=== PATIENT | female | born 1985 | race Caucasian/White ===

== ENCOUNTER 2020-03-23 11:58 | Emergency (ER) | payer MEDICAID ==
--- NOTE | 2020-03-23 12:53 | EDM.PDOC ---
ED HPI GENERAL MEDICAL PROBLEM - General Chief Complaint: LABORER POLE CREW Problem Stated Complaint: BLOOD SPOTTING Time Seen by Provider: 03/23/20 12:34 Source of Information: Reports: Patient History Limitations: Reports: No Limitations - History of Present Illness INITIAL COMMENTS - FREE TEXT/NARRATIVE: HISTORY AND PHYSICAL: History of present illness: Patient is a 35-year-old female who presents to the emergency room with complaints of vaginal bleeding in . She was seen yesterday in [facility] for this complaint and was told she is likely having a miscarriage. She states they did not do an ultrasound during her visit and wanted to come to our facility to have an ultrasound performed. She states she has some pressure in her pelvic area. She denies any recent injury, sexual activity or trauma. Patient denies any fever, chills, headache, change in vision, syncope or near syncope. Denies any chest pain, back pain, shortness of breath or cough. Denies any abdominal pain, nausea, vomiting, diarrhea, constipation or dysuria. Has not noted any blood in urine or stool. Patient has been eating and drinking appropriately. Review of systems: As per history of present illness and below otherwise all systems reviewed and negative. Past medical history: As per history of present illness and as reviewed below otherwise noncontributory. Surgical history: As per history of present illness and as reviewed below otherwise noncontributory. Social history: See social history for further information Family history: As per history of present illness and as reviewed below otherwise noncontributory. Physical exam: General: Well developed and well nourished. Alert and orientated x 3. Nontoxic in appearance and in no acute distress. Vital signs are stable and have been reviewed by me. Nursing notes were reviewed. HEENT: Atraumatic, normocephalic, pupils equal and reactive bilaterally, negative for conjunctival pallor or scleral icterus, mucous membranes moist, TMs normal bilaterally, throat clear, neck supple, nontender, trachea midline. No drooling or trismus noted. No meningeal signs. No hot potato voice noted. Lungs: Clear to auscultation, breath sounds equal bilaterally, chest nontender. Normal work of breathing, no accessory muscles used. Heart: S1S2, regular rate and rhythm without overt murmur Abdomen: Soft, nondistended, nontender. Skin: Intact, warm, dry. No lesions or rashes noted. Hematologic: No petechiae or purpra. Mucosa appropriate color and normal nail bed color and refill. Extremities: Atraumatic, moves all extremities per self without difficulty or deficits, negative for cords or calf pain. Neurovascular unremarkable. Neuro: Awake, alert, oriented. Cranial nerves II through XII unremarkable. Cerebellum unremarkable. Motor and sensory unremarkable throughout. Exam nonfocal. Psychiatric: Mood and affect are appropriate. Normal thought process. Answering questions appropriately. Notes: Patient declined the pelvic exam. She states she just had a pelvic exam yesterday and does not want it again today. She states she is here mostly for the ultrasound but is agreeable to lab work. Shortly after the ultrasound the patient states she wants to leave AGAINST MEDICAL ADVICE. She does not want to wait for her results and is upset that her mother cannot be in the emergency room [place] to COVID. Patient does have a UTI with clue cells. Ultrasound shows a single intrauterine gestational sac located in the right horn of what appears to be a bifurcated uterus. 3.3 cm cyst within the right ovary. 6 weeks and 2 days. Patient signed out AMA. She states she has an appointment next week in [place] and will follow-up there. Diagnostics: CBC, CMP, AB/Rh, Quant HCG, U/S Therapeutics: None Prescription: None Impression: Vaginal bleeding in first trimester UTI Clue Cells Plan: Left AMA Definitive disposition and diagnosis as appropriate pending reevaluation and review of above. - Related Data Allergies Allergy/AdvReac Type Severity Reaction Status Date / Time fluoxetine [From Prozac] Allergy Unknown Other Verified 03/23/20 12:46 Home Meds: Home Meds . [No Known Home Meds] 03/23/20 [History] ED ROS GENERAL - Review of Systems Review Of Systems: Comprehensive ROS is negative, except as noted in HPI. ED EXAM - Physical Exam Exam: See Below (See dictation) Course - Vital Signs Last Recorded V/S: Last Vital Signs Temp 96.0 F L 03/23/20 12:47 Pulse 90 03/23/20 12:47 Resp 20 03/23/20 12:47 BP 116/57 L 03/23/20 12:47 Pulse Ox 98 03/23/20 12:47 - Orders/Labs/Meds Labs: Laboratory Tests 03/23/20 03/23/20 03/23/20 Range/Units 12:52 12:52 12:52 WBC 8.32 (4.0-11.0) K/uL RBC 4.58 (4.30-5.90) M/uL Hgb 13.5 (12.0-16.0) g/dL Hct 41.2 (36.0-46.0) % MCV 90.0 (80.0-98.0) fL MCH 29.5 (27.0-32.0) pg MCHC 32.8 (31.0-37.0) g/dL RDW Std Deviation 41.6 (28.0-62.0) fl RDW Coeff of Brandi 13 (11.0-15.0) % Plt Count 250 (150-400) K/uL MPV 10.50 (7.40-12.00) fL Neut % (Auto) 67.3 (48.0-80.0) % Lymph % (Auto) 25.2 (16.0-40.0) % [place] % (Auto) 6.7 (0.0-15.0) % Eos % (Auto) 0.7 (0.0-7.0) % Baso % (Auto) 0.1 (0.0-1.5) % Neut # (Auto) 5.6 (1.4-5.7) K/uL Lymph # (Auto) 2.1 (0.6-2.4) K/uL [place] # (Auto) 0.6 (0.0-0.8) K/uL Eos # (Auto) 0.1 (0.0-0.7) K/uL Baso # (Auto) 0.0 (0.0-0.1) K/uL Nucleated RBC % 0.0 /100WBC Nucleated RBCs # 0 K/uL Sodium 139 (136-145) mmol/L Potassium 4.1 (3.5-5.1) mmol/L Chloride 104 (98-107) mmol/L Carbon Dioxide 24.1 (21.0-32.0) mmol/L BUN 9 (7.0-18.0) mg/dL Creatinine 0.7 (0.6-1.0) mg/dL Est Cr Clr Drug Dosing 91.91 mL/min Estimated GFR (MDRD) > 60.0 ml/min Glucose 84 (74-106) mg/dL Calcium 8.9 (8.5-10.1) mg/dL Total Bilirubin 0.4 (0.2-1.0) mg/dL AST 19 (15-37) IU/L ALT 40 (14-63) IU/L Alkaline Phosphatase 104 (46-116) U/L Total Protein 7.5 (6.4-8.2) g/dL Albumin 3.8 (3.4-5.0) g/dL Globulin 3.7 (2.6-4.0) g/dL Albumin/Globulin Ratio 1.0 (0.9-1.6) HCG, Quant 72751.0 mIU/mL Urine Color Urine Appearance Urine pH (5.0-8.0) Ur Specific Douglas (1.001-1.035) Urine Protein (NEGATIVE) mg/dL Urine Glucose (UA) (NEGATIVE) mg/dL Urine Ketones (NEGATIVE) mg/dL Urine Occult Blood (NEGATIVE) Urine Nitrite (NEGATIVE) Urine Bilirubin (NEGATIVE) Urine Urobilinogen (<2.0) EU/dL Ur Leukocyte Esterase (NEGATIVE) Urine RBC (0-2/HPF) Urine WBC (0-5/HPF) Ur Epithelial Cells (NONE-FEW) Urine Bacteria (NEGATIVE) Urine Mucus (NONE-MOD) Urine Other Blood Type A POSITIVE 03/23/20 Range/Units 13:18 WBC (4.0-11.0) K/uL RBC (4.30-5.90) M/uL Hgb (12.0-16.0) g/dL Hct (36.0-46.0) % MCV (80.0-98.0) fL MCH (27.0-32.0) pg MCHC (31.0-37.0) g/dL RDW Std Deviation (28.0-62.0) fl RDW Coeff of Brandi (11.0-15.0) % Plt Count (150-400) K/uL MPV (7.40-12.00) fL Neut % (Auto) (48.0-80.0) % Lymph % (Auto) (16.0-40.0) % [place] % (Auto) (0.0-15.0) % Eos % (Auto) (0.0-7.0) % Baso % (Auto) (0.0-1.5) % Neut # (Auto) (1.4-5.7) K/uL Lymph # (Auto) (0.6-2.4) K/uL [place] # (Auto) (0.0-0.8) K/uL Eos # (Auto) (0.0-0.7) K/uL Baso # (Auto) (0.0-0.1) K/uL Nucleated RBC % /100WBC Nucleated RBCs # K/uL Sodium (136-145) mmol/L Potassium (3.5-5.1) mmol/L Chloride (98-107) mmol/L Carbon Dioxide (21.0-32.0) mmol/L BUN (7.0-18.0) mg/dL Creatinine (0.6-1.0) mg/dL Est Cr Clr Drug Dosing mL/min Estimated GFR (MDRD) ml/min Glucose (74-106) mg/dL Calcium (8.5-10.1) mg/dL Total Bilirubin (0.2-1.0) mg/dL AST (15-37) IU/L ALT (14-63) IU/L Alkaline Phosphatase (46-116) U/L Total Protein (6.4-8.2) g/dL Albumin (3.4-5.0) g/dL Globulin (2.6-4.0) g/dL Albumin/Globulin Ratio (0.9-1.6) HCG, Quant mIU/mL Urine Color YELLOW Urine Appearance SLT CLOUDY Urine pH 6.0 (5.0-8.0) Ur Specific Douglas >= 1.030 (1.001-1.035) Urine Protein NEGATIVE (NEGATIVE) mg/dL Urine Glucose (UA) NEGATIVE (NEGATIVE) mg/dL Urine Ketones NEGATIVE (NEGATIVE) mg/dL Urine Occult Blood MODERATE H (NEGATIVE) Urine Nitrite NEGATIVE (NEGATIVE) Urine Bilirubin NEGATIVE (NEGATIVE) Urine Urobilinogen 2.0 H (<2.0) EU/dL Ur Leukocyte Esterase SMALL H (NEGATIVE) Urine RBC 1-2 (0-2/HPF) Urine WBC 10-15 (0-5/HPF) Ur Epithelial Cells FEW (NONE-FEW) Urine Bacteria FEW (NEGATIVE) Urine Mucus MODERATE (NONE-MOD) Urine Other Blood Type Departure - Departure Time of Disposition: 14:49 Disposition: Against Medical Advice 07 Clinical Impression: Vaginal bleeding in UTI (urinary tract infection) Qualifiers: Urinary tract infection type: acute cystitis Hematuria presence: with hematuria Qualified Code(s): N30.01 - Acute cystitis with hematuria - Discharge Information Referrals: PCP,None [Primary Care Provider] - Forms: ED Department Discharge Sepsis Event Note (ED) - Focused Exam Vital Signs: Vital Signs Temp Pulse Resp BP Pulse Ox 03/23/20 12:47 96.0 F L 90 20 116/57 L 98
[2020-03-23 13:39] LABS: BLOOD UREA NITROGEN,BUN 9 mg/dL (7.0-18.0); CARBON DIOXIDE,CO2 24.1 mmol/L (21.0-32.0); CHLORIDE,CL 104 mmol/L (98-107); GLUCOSE RANDOM 84 mg/dL (74-106); POTASSIUM,K 4.1 mmol/L (3.5-5.1); SODIUM,NA 139 mmol/L (136-145)
--- NOTE | 2020-03-23 14:14 | US ---
First trimester obstetrical ultrasound: Multiple real-time images were obtained transvaginally. 2 uterine horns appeared to be present. Single intrauterine is seen within the right horn. Measurements: Current ultrasound: RENATO 11/14/20, gestational age 6 weeks 2 days Single intrauterine gestation is seen. Yolk sac and pole are identified. No subchorionic hemorrhage is seen. Cyst noted within the right ovary measuring 3.3 cm which is most likely due to corpus luteum cyst. Measurements: [place]-rump length: 4.63 cm- 6 weeks 2 days Mean sac diameter: 1.40 cm- in the 6 weeks 2 days Heart activity is seen. Impression: 1. 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 2. Dates as noted above. 3. 3.3 cm cyst within the maternal right ovary most likely due to corpus luteum cyst. Note: No etiology is identified to explain the patient's vaginal bleeding. Diagnostic code #2 This report was dictated in MDT
== END 2020-03-23 14:16 | disposition left against medical advice (07) ==
LOC: MW.ED 11:58
DX: O46.91 Antepartum hemorrhage, unspecified, first trimester (principal); O23.41 Unspecified infection of urinary tract in pregnancy, first trimester; Z3A.01 Less than 8 weeks gestation of pregnancy
CPT/HCPCS: 36415; 76801; 76801-26; 80053; 81001; 84702; 85025; 86900; 86901; 99283; 99284-25

== ENCOUNTER 2020-05-16 19:51 | Emergency (ER) | payer MEDICAID ==
--- NOTE | 2020-05-16 21:21 | EDM.PDOC ---
ED HPI GENERAL MEDICAL PROBLEM - General Chief Complaint: AUTOMOTIVE QUALITY MANAGER Problem Stated Complaint: CRAMPING Time Seen by Provider: 05/16/20 20:59 Source of Information: Reports: Patient History Limitations: Reports: No Limitations - History of Present Illness INITIAL COMMENTS - FREE TEXT/NARRATIVE: 35-year-old female history of PCOS, , GA 14 weeks presents with pelvic c ramping. She is concerned for her baby and wants an ultrasound performed. She has an follow-up appointment with Dr. Mcdermott on Tuesday. She has been undergoing a lot of stress at home. She denies fever, chills, vaginal bleeding, nausea, vomiting, diarrhea, leakage of fluid. ROS: A 10-point review of systems, other than pertinent positives and negatives as stated per HPI, is otherwise negative Past medical history: No additional pertinent history Past Surgical history: No additional pertinent history Social history: No additional pertinent history Family history: No additional pertinent history PHYSICAL EXAM General: AOx4, GCS = 15, No distress HEENT: dry mucous membrane Neck: supple, no meningismus, no Kernig or Brudzinski Cardiac: S1S2 RRR Respiratory: CTAB, no crackles or rales, no wheezing Abdomen: Soft, nontender, no rebound or guarding, nondistended, no pulsatile mass. Back: nontender Musculoskeletal: NVI distally, no deformity Neuro: No focal deficits, CN 2 - 12 WNL. Lower Abdomen Pain Score (Numeric/FACES): 3 - Related Data Allergies Allergy/AdvReac Type Severity Reaction Status Date / Time fluoxetine [From Prozac] Allergy Unknown Other Verified 05/16/20 20:47 Home Meds: Home Meds Metoclopramide HCl [Reglan] 10 mg PO Q4HR PRN 05/16/20 [History] Pnv No.95/Ferrous Fum/Folic AC [ Caplet] 1 dose PO DAILY 05/16/20 [History] cephALEXin [Keflex] 500 mg PO Q8H #30 cap 05/16/20 [Rx] Past Medical History HEENT History: Reports: None Cardiovascular History: Reports: None Respiratory History: Reports: None Gastrointestinal History: Reports: None Genitourinary History: Reports: None AUTOMOTIVE QUALITY MANAGER History: Reports: Polycystic Ovaries, , Other (See Below) Other AUTOMOTIVE QUALITY MANAGER History: states she is 6 weeks , spotting Musculoskeletal History: Reports: None Neurological History: Reports: None Psychiatric History: Reports: Anxiety, Depression Endocrine/Metabolic History: Reports: None Hematologic History: Reports: None Immunologic History: Reports: None Oncologic (Cancer) History: Reports: None Dermatologic History: Reports: None - Infectious Disease History Infectious Disease History: Reports: Chicken Pox Social & Family History - Family History Family Medical History: No Pertinent Family History - Tobacco Use Tobacco Use Status *Q: Former Tobacco User Used Tobacco, but Quit: Yes Month/Year Tobacco Last Used: 02/13 - Caffeine Use Caffeine Use: Reports: Coffee - Recreational Drug Use Recreational Drug Use: No ED ROS GENERAL - Review of Systems Review Of Systems: See Below (see dictation) ED EXAM, GENERAL - Physical Exam Exam: See Below (see dictation) Course - Vital Signs Last Recorded V/S: Last Vital Signs Temp 96.5 F L 05/16/20 20:48 Pulse 88 05/16/20 20:48 Resp 20 05/16/20 20:48 BP 141/54 H 05/16/20 20:48 Pulse Ox 100 05/16/20 20:48 - Orders/Labs/Meds Orders: Active Orders 24 hr Category Date Time Status OB Transvaginal [US] Stat Exams 05/16/20 20:26 Ordered ABO/RH TYPE [BBK] Stat Lab 05/16/20 21:03 Received CULTURE URINE [RM] Stat Lab 05/16/20 21:03 Received Labs: Laboratory Tests 05/16/20 05/16/20 05/16/20 Range/Units 21:03 21:03 21:03 WBC 8.86 (4.0-11.0) K/uL RBC 4.32 (4.30-5.90) M/uL Hgb 12.8 (12.0-16.0) g/dL Hct 39.1 (36.0-46.0) % MCV 90.5 (80.0-98.0) fL MCH 29.6 (27.0-32.0) pg MCHC 32.7 (31.0-37.0) g/dL RDW Std Deviation 43.1 (28.0-62.0) fl RDW Coeff of Brandi 13 (11.0-15.0) % Plt Count 231 (150-400) K/uL MPV 10.20 (7.40-12.00) fL Neut % (Auto) 68.4 (48.0-80.0) % Lymph % (Auto) 23.4 (16.0-40.0) % [place] % (Auto) 7.2 (0.0-15.0) % Eos % (Auto) 0.9 (0.0-7.0) % Baso % (Auto) 0.1 (0.0-1.5) % Neut # (Auto) 6.1 H (1.4-5.7) K/uL Lymph # (Auto) 2.1 (0.6-2.4) K/uL Mobile # (Auto) 0.6 (0.0-0.8) K/uL Eos # (Auto) 0.1 (0.0-0.7) K/uL Baso # (Auto) 0.0 (0.0-0.1) K/uL Nucleated RBC % 0.0 /100WBC Nucleated RBCs # 0 K/uL Sodium 139 (136-145) mmol/L Potassium 3.8 (3.5-5.1) mmol/L Chloride 105 (98-107) mmol/L Carbon Dioxide 25.5 (21.0-32.0) mmol/L BUN 8 (7.0-18.0) mg/dL Creatinine 0.5 L (0.6-1.0) mg/dL Est Cr Clr Drug Dosing 128.67 mL/min Estimated GFR (MDRD) > 60.0 ml/min Glucose 100 (74-106) mg/dL Calcium 8.8 (8.5-10.1) mg/dL Total Bilirubin 0.2 (0.2-1.0) mg/dL AST 16 (15-37) IU/L ALT 36 (14-63) IU/L Alkaline Phosphatase 62 (46-116) U/L Total Protein 7.1 (6.4-8.2) g/dL Albumin 3.5 (3.4-5.0) g/dL Globulin 3.6 (2.6-4.0) g/dL Albumin/Globulin Ratio 1.0 (0.9-1.6) HCG, Qual (NEG) Urine Color YELLOW Urine Appearance SLT CLOUDY Urine pH 6.0 (5.0-8.0) Ur Specific [place]re >= 1.030 (1.001-1.035) Urine Protein NEGATIVE (NEGATIVE) mg/dL Urine Glucose (UA) NEGATIVE (NEGATIVE) mg/dL Urine Ketones TRACE H (NEGATIVE) mg/dL Urine Occult Blood NEGATIVE (NEGATIVE) Urine Nitrite NEGATIVE (NEGATIVE) Urine Bilirubin NEGATIVE (NEGATIVE) Urine Urobilinogen 2.0 H (<2.0) EU/dL Ur Leukocyte Esterase SMALL H (NEGATIVE) Urine RBC 0-2 (0-2/HPF) Urine WBC 4-8 (0-5/HPF) Ur Epithelial Cells FEW (NONE-FEW) Urine Bacteria FEW (NEGATIVE) Urine Mucus LIGHT (NONE-MOD) 05/16/20 Range/Units 21:03 WBC (4.0-11.0) K/uL RBC (4.30-5.90) M/uL Hgb (12.0-16.0) g/dL Hct (36.0-46.0) % MCV (80.0-98.0) fL MCH (27.0-32.0) pg MCHC (31.0-37.0) g/dL RDW Std Deviation (28.0-62.0) fl RDW Coeff of Brandi (11.0-15.0) % Plt Count (150-400) K/uL MPV (7.40-12.00) fL Neut % (Auto) (48.0-80.0) % Lymph % (Auto) (16.0-40.0) % [place] % (Auto) (0.0-15.0) % Eos % (Auto) (0.0-7.0) % Baso % (Auto) (0.0-1.5) % Neut # (Auto) (1.4-5.7) K/uL Lymph # (Auto) (0.6-2.4) K/uL Mobile # (Auto) (0.0-0.8) K/uL Eos # (Auto) (0.0-0.7) K/uL Baso # (Auto) (0.0-0.1) K/uL Nucleated RBC % /100WBC Nucleated RBCs # K/uL Sodium (136-145) mmol/L Potassium (3.5-5.1) mmol/L Chloride (98-107) mmol/L Carbon Dioxide (21.0-32.0) mmol/L BUN (7.0-18.0) mg/dL Creatinine (0.6-1.0) mg/dL Est Cr Clr Drug Dosing mL/min Estimated GFR (MDRD) ml/min Glucose (74-106) mg/dL Calcium (8.5-10.1) mg/dL Total Bilirubin (0.2-1.0) mg/dL AST (15-37) IU/L ALT (14-63) IU/L Alkaline Phosphatase (46-116) U/L Total Protein (6.4-8.2) g/dL Albumin (3.4-5.0) g/dL Globulin (2.6-4.0) g/dL Albumin/Globulin Ratio (0.9-1.6) HCG, Qual POSITIVE H (NEG) Urine Color Urine Appearance Urine pH (5.0-8.0) Ur Specific Sayre (1.001-1.035) Urine Protein (NEGATIVE) mg/dL Urine Glucose (UA) (NEGATIVE) mg/dL Urine Ketones (NEGATIVE) mg/dL Urine Occult Blood (NEGATIVE) Urine Nitrite (NEGATIVE) Urine Bilirubin (NEGATIVE) Urine Urobilinogen (<2.0) EU/dL Ur Leukocyte Esterase (NEGATIVE) Urine RBC (0-2/HPF) Urine WBC (0-5/HPF) Ur Epithelial Cells (NONE-FEW) Urine Bacteria (NEGATIVE) Urine Mucus (NONE-MOD) - Re-Assessments/Exams Free Text/Narrative Re-Assessment/Exam: 05/16/20 21:59 She is currently stable for discharge. I performed a repeat exam and did not appreciate new abnormal findings. Patient exhibits normal vital signs and has a normal gait on road test. I advised the patient to return to the ER for reevaluation if symptoms worsened, including fever, worsening pain, or any other worrisome symptoms. I instructed the patient to follow up with Dr. Mcdermott on Tuesday. MEDICAL DECISION MAKING: I reviewed the patients past medical records, lab and radiographic findings. I discussed the case with the patient. My differential diagnosis included: IUFD, round ligament syndrome, threatened , UTI Departure - Departure Time of Disposition: 21:42 Disposition: Home, Self-Care 01 Condition: Good Clinical Impression: Pelvic cramping in antepartum period UTI (urinary tract infection) Qualifiers: Urinary tract infection type: acute cystitis Hematuria presence: with hematuria Qualified Code(s): N30.01 - Acute cystitis with hematuria - Discharge Information *PRESCRIPTION DRUG MONITORING PROGRAM REVIEWED*: Not Applicable *COPY OF PRESCRIPTION DRUG MONITORING REPORT IN PATIENT NERI: Not Applicable Prescriptions: cephALEXin [Keflex] 500 mg PO Q8H #30 cap Instructions: Pelvic Pain, Female, [id number], and Urinary Tract Infection, Urinary Tract Infection, Adult, [id number] Referrals: Cally Mcdermott MD [Primary Care Provider] - 05/19/20 Forms: ED Department Discharge Additional Instructions: The need for follow-up, as well as the timing and circumstances, are variable depending upon the specifics of your emergency department visit. If you don't have a primary care physician on staff, we will provide you with a referral. We always advise you to contact your personal physician following an emergency department visit to inform them of the circumstance of the visit and for follow-up with them and/or the need for any referrals to a consulting specialist. The emergency department will also refer you to a specialist when appropriate. This referral assures that you have the opportunity for follow-up care with a specialist. All of these measure are taken in an effort to provide you with optimal care, which includes your follow-up. Under all circumstances we always encourage you to contact your private physician who remains a resource for coordinating your care. When calling for follow-up care, please make the office aware that this follow-up is from your recent emergency room visit. If for any reason you are refused follow-up, please contact the [facility] Emergency Department at and asked to speak to the emergency department charge nurse. If you do not have a primary care doctor, please follow up with the clinics below within 3-5 days. [facility] - Primary Care [address] [place] [address] [id number] [address] [address] Sepsis Event Note (ED) - Evaluation Sepsis Screening Result: No Definite Risk - Focused Exam Vital Signs: Vital Signs Temp Pulse Resp BP Pulse Ox 05/16/20 20:48 96.5 F L 88 20 141/54 H 100 - My Orders Last 24 Hours: My Active Orders 05/16/20 20:26 OB Transvaginal [US] Stat - Assessment/Plan Last 24 Hours: My Active Orders 05/16/20 20:26 OB Transvaginal [US] Stat
[2020-05-16 21:38] LABS: BLOOD UREA NITROGEN,BUN 8 mg/dL (7.0-18.0); CARBON DIOXIDE,CO2 25.5 mmol/L (21.0-32.0); CHLORIDE,CL 105 mmol/L (98-107); GLUCOSE RANDOM 100 mg/dL (74-106); POTASSIUM,K 3.8 mmol/L (3.5-5.1); SODIUM,NA 139 mmol/L (136-145)
--- NOTE | 2020-05-16 22:28 | US ---
INDICATION: , cramping TECHNIQUE: Ultrasound OB pelvis transabdominal. Real-time boone-scale imaging of the fetus was performed as well as color Doppler and spectral Doppler analysis of the umbilical artery. COMPARISON: None FINDINGS: Clinical Age: 14 weeks 0 days (RENATO 11/14/2020) Sonographic imaging demonstrates a single living intrauterine gestation. Fetus demonstrates a regular cardiac rate of 159 beats per minute. Fetus has a variable orientation. The placenta lies posterior without evidence of placenta previa. Amniotic fluid volume appears subjectively normal. The following biometric measurements were obtained: Biparietal diameter: 2.3 centimeters corresponding to 13 weeks 6 days. Femur length: 1.2 centimeters corresponding to 13 weeks 3 days.. Maternal left ovary measures 2.3 x 2.0 x 3.0 centimeters and shows normal blood flow. Maternal right ovary not seen although no adnexal masses identified. IMPRESSION.: 1. Single live intrauterine gestation with a clinical age of 14 weeks 0 days. 2. Subjectively normal amniotic fluid. Posterior placenta without perigestational bleed. 3. No maternal adnexal masses seen. Dictated by Fco Curtis MD @ May 16 2020 10:23PM Signed by Dr. Fco Curtis @ May 16 2020 10:27PM
== END 2020-05-16 21:52 | disposition home or self-care (01) ==
LOC: MW.ED 19:51
DX: O23.12 Infections of bladder in pregnancy, second trimester (principal); Z87.891 Personal history of nicotine dependence; Z88.8 Allergy status to other drugs, medicaments and biological substances; Z3A.14 14 weeks gestation of pregnancy
CPT/HCPCS: 36415; 76817; 76817-26; 80053; 81001; 84703; 85025; 86900; 86901; 87086; 99283; 99284-25

== ENCOUNTER 2020-10-29 15:00 | Inpatient (IN) | payer MEDICAID ==
[2020-10-29] MEDS ORDERED: Butorphanol 1 MG/ML SDV IVPUSH PRN (17:06)
[2020-10-29] MEDS ORDERED: Sodium Chloride 0.9% 10 ML SDV IV PRN (17:06)
[2020-10-29] MEDS ORDERED: Tranexamic Acid 1,000 MG in Sodium Chloride 0.9% 100 ML IV PRN (17:06)
[2020-10-29] MEDS ORDERED: Terbutaline 1 MG/ML SDV SUBCUT PRN (17:06)
[2020-10-29] MEDS ORDERED: Misoprostol 200 MCG Tab PO PRN (17:06)
[2020-10-29] MEDS ORDERED: Lidocaine 1% 50 ML MDV INJECT PRN (17:06)
[2020-10-29] MEDS ORDERED: Carboprost Tromethamine 250 MCG/1 ML Amp IM PRN (17:06)
[2020-10-29] MEDS ORDERED: Misoprostol 25 MCG (1/4 of 100 MCG) Tab VAG PRN ×2 (17:06)
[2020-10-29] MEDS ORDERED: Sodium Chloride 0.9% 10 ML Syringe FLUSH PRN (17:06)
[2020-10-29] MEDS ORDERED: Nalbuphine 10 MG/1 ML Vial IVPUSH PRN (17:06)
[2020-10-29] MEDS ORDERED: Methylergonovine 0.2 MG/1 ML Amp IM PRN (17:06)
[2020-10-29] MEDS ORDERED: Water For Irrigation,Sterile 1,000 ML Container IRR PRN (17:06)
[2020-10-29] MEDS ORDERED: Sodium Chloride 0.9% 2.5 ML Syringe FLUSH PRN (17:06)
[2020-10-29] MEDS ORDERED: Oxytocin/0.9 % Sodium Chloride 30 UNIT/500 ML BAG IV SCH (17:15)
[2020-10-29] MEDS: Lactated Ringers 1,000 ML IV SCH ×3 (18:10→21:05)
[2020-10-29 19:34] LABS: BLOOD UREA NITROGEN,BUN 7 mg/dL (7.0-18.0); CARBON DIOXIDE,CO2 22.5 mmol/L (21.0-32.0); CHLORIDE,CL 105 mmol/L (98-107); GLUCOSE RANDOM 76 mg/dL (74-106); SODIUM,NA 138 mmol/L (136-145)
[2020-10-29] MEDS ORDERED: fentaNYL 100 MCG/2 ML SDV ONE (20:38)
[2020-10-29] MEDS ORDERED: Ropivacaine HCl/PF 100 ML ONE (20:39)
--- NOTE | 2020-10-29 21:06 | PCM.PREANE ---
Preanesthetic Assessment - Anesthesia/Transfusion/Family Hx Anesthesia History: Prior Anesthesia Without Reaction Family History of Anesthesia Reaction: No Transfusion History: No Prior Transfusion(s) - Review of Systems Other: Reports: Liver Problems - Physical Assessment NPO Status Date: 10/29/20 NPO Status Time: 18:00 Height: 1.6 m Weight: 107.048 kg ASA Class: 2 - Lab Values: Laboratory Last Values WBC 10.56 K/uL (4.0-11.0) 10/29/20 18:10 RBC 4.05 M/uL (4.30-5.90) L 10/29/20 18:10 Hgb 12.2 g/dL (12.0-16.0) 10/29/20 18:10 Hct 36.8 % (36.0-46.0) 10/29/20 18:10 MCV 90.9 fL (80.0-98.0) 10/29/20 18:10 MCH 30.1 pg (27.0-32.0) 10/29/20 18:10 MCHC 33.2 g/dL (31.0-37.0) 10/29/20 18:10 RDW Std Deviation 44.8 fl (28.0-62.0) 10/29/20 18:10 RDW Coeff of Brandi 14 % (11.0-15.0) 10/29/20 18:10 Plt Count 195 K/uL (150-400) 10/29/20 18:10 MPV 12.10 fL (7.40-12.00) H 10/29/20 18:10 Nucleated RBC % 0.0 /100WBC 10/29/20 18:10 Nucleated RBCs # 0 K/uL 10/29/20 18:10 Sodium 138 mmol/L (136-145) 10/29/20 18:10 Potassium 4.0 mmol/L (3.5-5.1) 10/29/20 18:10 Chloride 105 mmol/L (98-107) 10/29/20 18:10 Carbon Dioxide 22.5 mmol/L (21.0-32.0) 10/29/20 18:10 BUN 7 mg/dL (7.0-18.0) 10/29/20 18:10 Creatinine 0.7 mg/dL (0.6-1.0) 10/29/20 18:10 Est Cr Clr Drug Dosing 91.91 mL/min 10/29/20 18:10 Estimated GFR (MDRD) > 60.0 ml/min 10/29/20 18:10 Glucose 76 mg/dL (74-106) 10/29/20 18:10 Uric Acid 3.0 mg/dL (2.6-7.2) 10/29/20 18:10 Calcium 8.3 mg/dL (8.5-10.1) L 10/29/20 18:10 Total Bilirubin 0.3 mg/dL (0.2-1.0) 10/29/20 18:10 AST 18 IU/L (15-37) 10/29/20 18:10 ALT 20 IU/L (14-63) 10/29/20 18:10 Alkaline Phosphatase 142 U/L (46-116) H 10/29/20 18:10 Total Protein 6.3 g/dL (6.4-8.2) L 10/29/20 18:10 Albumin 2.7 g/dL (3.4-5.0) L 10/29/20 18:10 Globulin 3.6 g/dL (2.6-4.0) 10/29/20 18:10 Albumin/Globulin Ratio 0.8 (0.9-1.6) L 10/29/20 18:10 Membrane Rupture POSITIVE 10/29/20 15:55 SARS-CoV-2 RNA (GEO) NEGATIVE (NEGATIVE) 10/29/20 17:40 Blood Type A POSITIVE 10/29/20 18:10 Antibody Screen NEGATIVE 10/29/20 18:10 - Allergies Allergies/Adverse Reactions: Allergies Allergy/AdvReac Type Severity Reaction Status Date / Time fluoxetine [From Prozac] Allergy Unknown Other Verified 10/27/20 12:53 - Acknowledgements Anesthesia Type Planned: Epidural Pt an Appropriate Candidate for the Planned Anesthesia: Yes Alternatives and Risks of Anesthesia Discussed w Pt/Guardian: Yes Pt/Guardian Understands and Agrees with Anesthesia Plan: Yes PreAnesthesia Questionnaire HEENT History: Reports: None Cardiovascular History: Reports: None Respiratory History: Reports: None Gastrointestinal History: Reports: None Genitourinary History: Reports: None SERVICE DESK AGENT History: Reports: Polycystic Ovaries, , Other (See Below) Other OB/BYN History: states she is 6 weeks , spotting Musculoskeletal History: Reports: None Neurological History: Reports: None Psychiatric History: Reports: Anxiety, Depression Endocrine/Metabolic History: Reports: None Hematologic History: Reports: None Immunologic History: Reports: None Oncologic (Cancer) History: Reports: None Dermatologic History: Reports: Eczema - Infectious Disease History Infectious Disease History: Reports: Hepatitis C - Past Surgical History Head Surgeries/Procedures: Reports: None - SUBSTANCE USE Tobacco Use Status *Q: Current Every Day Tobacco User Tobacco Use Within Last Twelve Months: Cigarettes Second Hand Smoke Exposure: No Recreational Drug Use History: No - HOME MEDS Home Medications: Home Meds Metoclopramide HCl [Reglan] 10 mg PO Q4HR PRN 05/16/20 [History] Pnv No.95/Ferrous Fum/Folic AC [ Caplet] 1 dose PO DAILY 05/16/20 [History] cephALEXin [Keflex] 500 mg PO Q8H #30 cap 05/16/20 [Rx] - CURRENT (IN HOUSE) MEDS Current Meds: Current Medications Butorphanol Tartrate (Butorphanol 1 Mg/Ml Sdv) 1 mg IVPUSH Q1H PRN PRN Reason: Pain Carboprost Tromethamine (Carboprost Tromethamine 250 Mcg/1 Ml Amp) 250 mcg IM ASDIRECTED PRN PRN Reason: Post Hemorrhage Oxytocin/Sodium Chloride (Oxytocin 30 Unit/500 Ml-Ns) 30 unit in 500 mls @ 2 mls/hr IV TITRATE DAYANA; Protocol Last Titration: 10/29/20 19:29 Dose: 4 munits/min, 4 mls/hr Documented by: Lactated Ringer's (Ringers, Lactated) 1,000 mls @ 150 mls/hr IV ASDIRECTED DAYANA Last Admin: 10/29/20 21:05 Dose: 150 mls/hr Documented by: Oxytocin/Sodium Chloride (Oxytocin 30 Unit/500 Ml-Ns) 30 unit in 500 mls @ 999 mls/hr IV TITRATE DAYANA Tranexamic Acid 1,000 mg/ (Sodium Chloride) 110 mls @ 660 mls/hr IV ONETIME PRN PRN Reason: Bleeding Lidocaine HCl (Lidocaine 1% 50 Ml Mdv) 50 ml INJECT ONETIME PRN PRN Reason: Laceration repair Methylergonovine Maleate (Methylergonovine 0.2 Mg/1 Ml Amp) 0.2 mg IM ASDIRECTED PRN PRN Reason: Post Hemorrhage Misoprostol (Misoprostol 200 Mcg Tab) 200 mcg PO ONETIME PRN PRN Reason: Post Hemorrhage Nalbuphine HCl (Nalbuphine 10 Mg/1 Ml Vial) 10 mg IVPUSH Q1H PRN PRN Reason: Pain (severe 7-10) Sodium Chloride (Sodium Chloride 0.9% 10 Ml Syringe) 10 ml FLUSH ASDIRECTED PRN PRN Reason: Keep Vein Open Sodium Chloride (Sodium Chloride 0.9% 2.5 Ml Syringe) 2.5 ml FLUSH ASDIRECTED PRN PRN Reason: Keep Vein Open Sodium Chloride (Sodium Chloride 0.9% 10 Ml Sdv) 10 ml IV ASDIRECTED PRN PRN Reason: IV Use Sterile Water (Water For Irrigation,Sterile 1,000 Ml Container) 1,000 ml IRR ASDIRECTED PRN PRN Reason: delivery Terbutaline Sulfate (Terbutaline 1 Mg/Ml Sdv) 0.25 mg SUBCUT ASDIRECTED PRN PRN Reason: Tacysystole Discontinued Medications Fentanyl (Fentanyl 100 Mcg/2 Ml Sdv) Confirm Administered Dose 100 mcg .ROUTE .STK-MED ONE Stop: 10/29/20 20:39 Ropivacaine (Naropin 0.2%) Confirm Administered Dose 100 mls @ as directed .ROUTE .STK-MED ONE Stop: 10/29/20 20:40
--- NOTE | 2020-10-29 21:09 | PCM.PRNOTE ---
- Free Text/Narrative Note: Anes NOte Patient rquests epidural for L&D. Sitting position. Level L3-L4 midline approach. Sterile technique. Chloraprep scrub to lumbar area. Sterile fenestrated drape applied. Epidural space easily achieved second attempt using CHELSY technique. CHELSY at 4 cm. Cath threaded 5 cm with ease. Cath secured at skin using sterile clear adhesive dressing. Test 2054 3 cc 1.5% lido with epi negative. Load 2057 10 cc 0.2% ropivicaine with 1 mcg cc fentanyl in slow divided doses. 2103 Pump started with 90 cc same solution. Rate is 8 cc hr iwth 6 cc q 20 min prn bolus. Herber well. Time with patient Clement Francosi DENTAL OFFICE RECEPTIONIST
[2020-10-30] MEDS ORDERED: Ondansetron 4 MG/2 ML SDV ONE (00:54)
[2020-10-30] MEDS ORDERED: Ondansetron 4 MG/2 ML SDV IVPUSH PRN (01:08)
[2020-10-30] MEDS ORDERED: fentaNYL 100 MCG/2 ML SDV ONE (04:40)
[2020-10-30] MEDS ORDERED: Lidocaine 2% with EPINEPHrine 1:200,000 20 ML SDV ONE (04:40)
[2020-10-30] MEDS ORDERED: Ropivacaine HCl/PF 100 ML ONE (04:40)
--- NOTE | 2020-10-30 04:55 | PCM.PRNOTE ---
- Free Text/Narrative Note: Anes Note Epidural Bag change. A new bag of 90 cc 0.2% ropivicaine with 1 mcg cc fentanl added was placed. Rate is 8 cc hr with 6 cc q 20 min prn pain. Also, a sitting doses of 6 cc 2% lido with epi was also administered. Time with patient [id number] Marlene Francois CRNA
[2020-10-30] MEDS: Oxytocin/0.9 % Sodium Chloride 30 UNIT/500 ML BAG IV SCH ×2 (05:40→06:17)
[2020-10-30] MEDS ORDERED: Butorphanol 1 MG/ML SDV ONE (06:07)
[2020-10-30] MEDS ORDERED: Oxytocin/0.9 % Sodium Chloride 30 UNIT/500 ML BAG ONE (06:12)
[2020-10-30] MEDS ORDERED: Misoprostol 200 MCG Tab ONE (06:12)
[2020-10-30] MEDS ORDERED: ceFAZolin 1 GM Vial ONE (07:08)
[2020-10-30] MEDS ORDERED: Sodium Chloride 0.9% 20 ML ONE (07:08)
[2020-10-30] MEDS ORDERED: Propofol 200 MG/20 ML SDV ONE ×2 (07:12→08:06)
[2020-10-30] MEDS ORDERED: Midazolam 1 MG/ML 2 ML SDV ONE ×2 (07:13→07:14)
[2020-10-30] MEDS ORDERED: Ketamine 500 mg/10 ML MDV ONE (07:45)
[2020-10-30] MEDS ORDERED: fentaNYL 250 MCG/5 ML SDV ONE (08:04)
[2020-10-30] MEDS ORDERED: Methylergonovine 0.2 MG/1 ML Amp ONE (08:13)
--- NOTE | 2020-10-30 09:08 | US ---
INDICATION: Placenta retrieval in operating room TECHNIQUE: Limited transabdominal images of the pelvis were obtained during intraoperative removal of the placenta. COMPARISON: None. 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 There is no visualization of placental material on limited images with minimal fluid seen in the endometrial canal. IMPRESSION: Ultrasound guidance provided for intraoperative placental removal. No obvious placental tissue is seen within the limited images of the exam. Dictated by Joseluis Fishman MD @ 10/30/2020 9:05:[address] Joseluis Fishman @ Oct 30 2020 9:05AM
--- NOTE | 2020-10-30 11:27 | PCM.DEL ---
L & D Note - General Info Date of Service: 10/30/20 - Delivery Note Cervical Ripening Method: Oxytocin Delivery Outcome: Livebirth Delivery Method: Spontaneous Vaginal Delivery-Single Presentation: Left Occiput Anterior (YONY) Nuchal Cord: None Anesthesia Type: Epidural Amniotic Fluid Description: Clear Episiotomy Type: None Laceration: None Placenta: Retained Cord: 3 Vessels Estimated Blood Loss: 100 Resuscitation Needed: No Score 1 min: 8 Score 5 min: 9 Delivery Comments (Free Text/Narrative):: Live female delivered at 540 am , 8/9 weight 2470g Retained placenta , Patient taken to OR for removal of placenta after failed attempt at manual removal - General Info Date of Service: 10/30/20 - Patient Data Vitals - Most Recent: Last Vital Signs Temp 36.6 C 10/30/20 09:20 Pulse 88 10/30/20 10:35 Resp 17 10/30/20 10:35 BP 150/72 H 10/30/20 10:35 Pulse Ox 98 10/30/20 10:35 Weight - Most Recent: 107.048 kg I&O - Last 24 Hours: Intake & Output 10/29/20 10/30/20 10/30/20 22:59 06:59 14:59 Intake Total 1300 Output Total 50 Balance 1250 Lab Results Last 24 Hours: Laboratory Results - last 24 hr 10/29/20 10/29/20 10/29/20 Range/Units 15:55 17:40 18:10 WBC 10.56 (4.0-11.0) K/uL RBC 4.05 L (4.30-5.90) M/uL Hgb 12.2 (12.0-16.0) g/dL Hct 36.8 (36.0-46.0) % MCV 90.9 (80.0-98.0) fL MCH 30.1 (27.0-32.0) pg MCHC 33.2 (31.0-37.0) g/dL RDW Std Deviation 44.8 (28.0-62.0) fl RDW Coeff of Brandi 14 (11.0-15.0) % Plt Count 195 (150-400) K/uL MPV 12.10 H (7.40-12.00) fL Nucleated RBC % 0.0 /100WBC Nucleated RBCs # 0 K/uL Sodium (136-145) mmol/L Potassium (3.5-5.1) mmol/L Chloride (98-107) mmol/L Carbon Dioxide (21.0-32.0) mmol/L BUN (7.0-18.0) mg/dL Creatinine (0.6-1.0) mg/dL Est Cr Clr Drug Dosing mL/min Estimated GFR (MDRD) ml/min Glucose (74-106) mg/dL Uric Acid (2.6-7.2) mg/dL Calcium (8.5-10.1) mg/dL Total Bilirubin (0.2-1.0) mg/dL AST (15-37) IU/L ALT (14-63) IU/L Alkaline Phosphatase (46-116) U/L Total Protein (6.4-8.2) g/dL Albumin (3.4-5.0) g/dL Globulin (2.6-4.0) g/dL Albumin/Globulin Ratio (0.9-1.6) Ur Random Creatinine mg/dL U Random Total Protein (<11.9) mg/dL Protein/Creatinin Ratio Membrane Rupture POSITIVE SARS-CoV-2 RNA (GEO) NEGATIVE (NEGATIVE) Blood Type Antibody Screen 10/29/20 10/29/20 10/29/20 Range/Units 18:10 18:10 18:10 WBC (4.0-11.0) K/uL RBC (4.30-5.90) M/uL Hgb (12.0-16.0) g/dL Hct (36.0-46.0) % MCV (80.0-98.0) fL MCH (27.0-32.0) pg MCHC (31.0-37.0) g/dL RDW Std Deviation (28.0-62.0) fl RDW Coeff of Brandi (11.0-15.0) % Plt Count (150-400) K/uL MPV (7.40-12.00) fL Nucleated RBC % /100WBC Nucleated RBCs # K/uL Sodium 138 (136-145) mmol/L Potassium 4.0 (3.5-5.1) mmol/L Chloride 105 (98-107) mmol/L Carbon Dioxide 22.5 (21.0-32.0) mmol/L BUN 7 (7.0-18.0) mg/dL Creatinine 0.7 (0.6-1.0) mg/dL Est Cr Clr Drug Dosing 91.91 mL/min Estimated GFR (MDRD) > 60.0 ml/min Glucose 76 (74-106) mg/dL Uric Acid 3.0 (2.6-7.2) mg/dL Calcium 8.3 L (8.5-10.1) mg/dL Total Bilirubin 0.3 (0.2-1.0) mg/dL AST 18 (15-37) IU/L ALT 20 (14-63) IU/L Alkaline Phosphatase 142 H (46-116) U/L Total Protein 6.3 L (6.4-8.2) g/dL Albumin 2.7 L (3.4-5.0) g/dL Globulin 3.6 (2.6-4.0) g/dL Albumin/Globulin Ratio 0.8 L (0.9-1.6) Ur Random Creatinine mg/dL U Random Total Protein (<11.9) mg/dL Protein/Creatinin Ratio Membrane Rupture SARS-CoV-2 RNA (GEO) (NEGATIVE) Blood Type A POSITIVE Antibody Screen NEGATIVE 10/29/20 Range/Units 19:40 WBC (4.0-11.0) K/uL RBC (4.30-5.90) M/uL Hgb (12.0-16.0) g/dL Hct (36.0-46.0) % MCV (80.0-98.0) fL MCH (27.0-32.0) pg MCHC (31.0-37.0) g/dL RDW Std Deviation (28.0-62.0) fl RDW Coeff of Brandi (11.0-15.0) % Plt Count (150-400) K/uL MPV (7.40-12.00) fL Nucleated RBC % /100WBC Nucleated RBCs # K/uL Sodium (136-145) mmol/L Potassium (3.5-5.1) mmol/L Chloride (98-107) mmol/L Carbon Dioxide (21.0-32.0) mmol/L BUN (7.0-18.0) mg/dL Creatinine (0.6-1.0) mg/dL Est Cr Clr Drug Dosing mL/min Estimated GFR (MDRD) ml/min Glucose (74-106) mg/dL Uric Acid (2.6-7.2) mg/dL Calcium (8.5-10.1) mg/dL Total Bilirubin (0.2-1.0) mg/dL AST (15-37) IU/L ALT (14-63) IU/L Alkaline Phosphatase (46-116) U/L Total Protein (6.4-8.2) g/dL Albumin (3.4-5.0) g/dL Globulin (2.6-4.0) g/dL Albumin/Globulin Ratio (0.9-1.6) Ur Random Creatinine 149.9 mg/dL U Random Total Protein 24.8 H (<11.9) mg/dL Protein/Creatinin Ratio 0.2 Membrane Rupture SARS-CoV-2 RNA (GEO) (NEGATIVE) Blood Type Antibody Screen Med Orders - Current: Current Medications Butorphanol Tartrate (Butorphanol 1 Mg/Ml Sdv) 1 mg IVPUSH Q1H PRN PRN Reason: Pain Last Admin: 10/30/20 06:29 Dose: 1 mg Documented by: Carboprost Tromethamine (Carboprost Tromethamine 250 Mcg/1 Ml Amp) 250 mcg IM ASDIRECTED PRN PRN Reason: Post Hemorrhage Oxytocin/Sodium Chloride (Oxytocin 30 Unit/500 Ml-Ns) 30 unit in 500 mls @ 2 mls/hr IV TITRATE DAYANA; Protocol Last Titration: 10/30/20 06:15 Dose: 0 munits/min, 0 mls/hr Documented by: Lactated Ringer's (Ringers, Lactated) 1,000 mls @ 150 mls/hr IV ASDIRECTED DAYANA Last Admin: 10/29/20 21:05 Dose: 150 mls/hr Documented by: Oxytocin/Sodium Chloride (Oxytocin 30 Unit/500 Ml-Ns) 30 unit in 500 mls @ 999 mls/hr IV TITRATE DAYANA Last Admin: 10/30/20 06:17 Dose: 500 mls/hr Documented by: Tranexamic Acid 1,000 mg/ (Sodium Chloride) 110 mls @ 660 mls/hr IV ONETIME PRN PRN Reason: Bleeding Lidocaine HCl (Lidocaine 1% 50 Ml Mdv) 50 ml INJECT ONETIME PRN PRN Reason: Laceration repair Methylergonovine Maleate (Methylergonovine 0.2 Mg/1 Ml Amp) 0.2 mg IM ASDIRECTED PRN PRN Reason: Post Hemorrhage Misoprostol (Misoprostol 200 Mcg Tab) 200 mcg PO ONETIME PRN PRN Reason: Post Hemorrhage Last Admin: 10/30/20 06:18 Dose: 800 mcg Documented by: Nalbuphine HCl (Nalbuphine 10 Mg/1 Ml Vial) 10 mg IVPUSH Q1H PRN PRN Reason: Pain (severe 7-10) Ondansetron HCl (Ondansetron 4 Mg/2 Ml Sdv) 4 mg IVPUSH Q6H PRN PRN Reason: Nausea/Vomiting Last Admin: 10/30/20 01:10 Dose: 4 mg Documented by: Sodium Chloride (Sodium Chloride 0.9% 10 Ml Syringe) 10 ml FLUSH ASDIRECTED PRN PRN Reason: Keep Vein Open Sodium Chloride (Sodium Chloride 0.9% 2.5 Ml Syringe) 2.5 ml FLUSH ASDIRECTED PRN PRN Reason: Keep Vein Open Sodium Chloride (Sodium Chloride 0.9% 10 Ml Sdv) 10 ml IV ASDIRECTED PRN PRN Reason: IV Use Sterile Water (Water For Irrigation,Sterile 1,000 Ml Container) 1,000 ml IRR ASDIRECTED PRN PRN Reason: delivery Terbutaline Sulfate (Terbutaline 1 Mg/Ml Sdv) 0.25 mg SUBCUT ASDIRECTED PRN PRN Reason: Tacysystole Discontinued Medications Butorphanol Tartrate (Butorphanol 1 Mg/Ml Sdv) Confirm Administered Dose 1 mg .ROUTE .STK-MED ONE Stop: 10/30/20 06:08 Cefazolin Sodium (Cefazolin 1 Gm Vial) Confirm Administered Dose 2 gm .ROUTE .STK-MED ONE Stop: 10/30/20 07:09 Fentanyl (Fentanyl 100 Mcg/2 Ml Sdv) Confirm Administered Dose 100 mcg .ROUTE .STK-MED ONE Stop: 10/29/20 20:39 Fentanyl (Fentanyl 250 Mcg/5 Ml Sdv) Confirm Administered Dose 0 mcg .ROUTE .STK-MED ONE Stop: 10/30/20 08:05 Fentanyl (Fentanyl 100 Mcg/2 Ml Sdv) Confirm Administered Dose 100 mcg .ROUTE .STK-MED ONE Stop: 10/30/20 04:41 Ropivacaine (Naropin 0.2%) Confirm Administered Dose 100 mls @ as directed .ROUTE .[facility] ONE Stop: 10/29/20 20:40 Sodium Chloride (Normal Saline) Confirm Administered Dose 20 mls @ as directed .ROUTE .[facility] ONE Stop: 10/30/20 07:09 Ropivacaine (Naropin 0.2%) Confirm Administered Dose 100 mls @ as directed .ROUTE .[facility] ONE Stop: 10/30/20 04:41 Oxytocin/Sodium Chloride (Oxytocin 30 Unit/500 Ml-Ns) Confirm Administered Dose 30 unit in 500 mls @ as directed .ROUTE .[facility] ONE Stop: 10/30/20 06:13 Ketamine HCl (Ketamine 500 Mg/10 Ml Mdv) Confirm Administered Dose 500 mg .ROUTE .[facility] ONE Stop: 10/30/20 07:46 Lidocaine/Epinephrine (Lidocaine 2% With Epinephrine 1:200,000 20 Ml Sdv) Confirm Administered Dose 20 ml .ROUTE .[facility] ONE Stop: 10/30/20 04:41 Methylergonovine Maleate (Methylergonovine 0.2 Mg/1 Ml Amp) Confirm Administered Dose 0.2 mg .ROUTE .[facility] ONE Stop: 10/30/20 08:14 Midazolam HCl (Midazolam 1 Mg/Ml 2 Ml Sdv) Confirm Administered Dose 2 mg .ROUTE .[facility] ONE Stop: 10/30/20 07:14 Midazolam HCl (Midazolam 1 Mg/Ml 2 Ml Sdv) Confirm Administered Dose 2 mg .ROUTE .[facility] ONE Stop: 10/30/20 07:15 Misoprostol (Misoprostol 200 Mcg Tab) Confirm Administered Dose 800 mcg .ROUTE .[facility] ONE Stop: 10/30/20 06:13 Ondansetron HCl (Ondansetron 4 Mg/2 Ml Sdv) Confirm Administered Dose 4 mg .ROUTE .[facility] ONE Stop: 10/30/20 00:55 Propofol (Propofol 200 Mg/20 Ml Sdv) Confirm Administered Dose 0 mg .ROUTE .[facility]- MED ONE Stop: 10/30/20 07:13 Propofol (Propofol 200 Mg/20 Ml Sdv) Confirm Administered Dose 200 mg .ROUTE .[facility] ONE Stop: 10/30/20 08:07 - Problem List & Annotations (1) Retained placenta SNOMED Code(s): 254797466 Code(s): O73.0 - RETAINED PLACENTA WITHOUT HEMORRHAGE Status: Acute Current Visit: Yes Qualifiers: Retained placenta detail: complete placenta Qualified Code(s): O73.0 - Retained placenta without hemorrhage - Problem List Review Problem List Initiated/Reviewed/Updated: Yes - My Orders Last 24 Hours: My Active Orders 10/29/20 15:32 Up ad Pearl [RC] ASDIRECTED Vital Signs [RC] PER UNIT ROUTINE Resuscitation Status Routine 10/29/20 17:06 Patient Status [ADT] Routine May Shower [RC] ASDIRECTED Oxygen Therapy [RC] ASDIRECTED Up ad Pearl [RC] ASDIRECTED Vital Signs [RC] PER UNIT ROUTINE Vital Signs [RC] PER UNIT ROUTINE Butorphanol [Stadol] 1 mg IVPUSH Q1H PRN Carboprost Tromethamine [Hemabate DS] 250 mcg IM ASDIRECTED PRN Lidocaine 1% [Xylocaine 1%] 50 ml INJECT ONETIME PRN Methylergonovine [Methergine] 0.2 mg IM ASDIRECTED PRN Nalbuphine [Nubain] 10 mg IVPUSH Q1H PRN Sodium Chloride 0.9% [Normal Saline] 10 ml IV ASDIRECTED PRN Sodium Chloride 0.9% [Saline Flush] 10 ml FLUSH ASDIRECTED PRN Sodium Chloride 0.9% [Saline Flush] 2.5 ml FLUSH ASDIRECTED PRN Terbutaline [Brethine] 0.25 mg SUBCUT ASDIRECTED PRN Tranexamic Acid [Cyklokapron] 1,000 mg Sodium Chloride 0.9% [Normal Saline] 100 ml IV ONETIME Water For Irrigation,Sterile [Sterile Water for Irrigation] 1,000 ml IRR ASDIRECTED PRN miSOPROStoL [Cytotec] 200 mcg PO ONETIME PRN Scalp Electrode [WOMSER] Per Unit Routine Peripheral IV Insertion Adult [OM.PC] Routine 10/29/20 17:15 Lactated Ringers [Ringers, Lactated] 1,000 ml IV ASDIRECTED Oxytocin/0.9 % Sodium Chloride [Oxytocin 30 Unit/500 ML-NS] 30 unit in 500 ml IV TITRATE Oxytocin/0.9 % Sodium Chloride [Oxytocin 30 Unit/500 ML-NS] 30 unit in 500 ml IV TITRATE Medication Administration Instruction [OM.PC] Q3H 10/29/20 17:22 PROTEIN/CREATININE RATIO,URINE [URCHEM] Routine 10/29/20 18:10 RPR (SYPHILIS SERO) W/ RFLX [REF] Routine 10/29/20 20:24 Consult to Case Management/Finish Painter [CONS] Routine 10/30/20 01:08 Ondansetron [Zofran] 4 mg IVPUSH Q6H PRN - Assessment Assessment:: 35yo P1001 s/p @ 37w3d , IUGR , Active Hep C , Septate uterus Vaginal delivered complicated by retained placenta - Plan Plan:: OR to for Removal of placenta with curettage under ultrasound guidance
--- NOTE | 2020-10-30 11:44 | PCM.OPNOTE ---
- General Post-Op/Procedure Note Date of Surgery/Procedure: 10/30/20 Operative Procedure(s): Uterine exploration. Uterine curettage with removal of retained placenta under ultrasound guidance Findings: Ultrasound showed placenta in the right uterine fundus Under ultrasound guidance - Large Bandu curette used to seperate placenta from the endometrium , placenta moved down to the lower segment , then ring forcep used to grasp a large portion of placenta. Placenta gently pulled out of the uterus. Placenta inspected and noted to be complete. Pre Op Diagnosis: Retained placenta. Failed manual removal of placenta Post-Op Diagnosis: same Anesthesia Technique: Epidural, MAC Primary Surgeon: Paco Mendoza Anesthesia Provider: Clement Francois Pathology: Placenta Fluid Replacement, Intraop: 1,000 EBL in mLs: 500 Complications: None Condition: Good Free Text/Narrative:: Intake & Output 10/29/20 10/30/20 10/30/20 22:59 06:59 14:59 Intake Total 1300 Output Total 50 Balance 1250 Under ultrasound guidance the Banjo forcep was used to cleave the plane between the placenta and the endometrium . when placenta was cleaved the ring forcep was used to gentle pull placenta out. Placenta inspected and noted to be intact.
[2020-10-30] MEDS ORDERED: Bisacodyl 10 MG Supp RECTAL PRN (11:52)
[2020-10-30] MEDS ORDERED: Ibuprofen 800 MG Tab PO PRN (11:52)
[2020-10-30] MEDS ORDERED: Docusate Sodium 100 MG Cap PO PRN (11:52)
[2020-10-30] MEDS ORDERED: Witch Hazel Medicated Pads 40/Jar TOP PRN (11:52)
[2020-10-30] MEDS ORDERED: Acetaminophen 500 MG Tab PO PRN ×2 (11:52)
[2020-10-30] MEDS ORDERED: Lanolin 100% Cream 7 GM Tube TOP PRN (11:52)
[2020-10-30] MEDS ORDERED: Benzocaine/Menthol 20%-0.5% Spray 78 GM Cannister TOP PRN (11:52)
[2020-10-30] MEDS ORDERED: Ibuprofen 400 MG Tab PO PRN (11:52)
[2020-10-30] MEDS: oxyCODONE 5 MG Tab PO PRN (18:02)
--- NOTE | 2020-10-31 07:55 | PCM48HPAN ---
Post Anesthesia Note - EVALUATION WITHIN 48HRS OF ANESTHETIC Vital Signs in Normal Range: Yes Patient Participated in Evaluation: Yes Respiratory Function Stable: Yes Airway Patent: Yes Cardiovascular Function Stable: Yes Hydration Status Stable: Yes Pain Control Satisfactory: Yes Nausea and Vomiting Control Satisfactory: Yes Mental Status Recovered: Yes Vital Signs: Last Vital Signs Temp 36.1 C 10/30/20 19:47 Pulse 84 10/30/20 19:47 Resp 18 10/30/20 19:47 BP 137/73 10/30/20 19:47 Pulse Ox 96 10/30/20 19:47
[2020-10-31] MEDS: oxyCODONE 5 MG Tab PO PRN (08:42)
--- NOTE | 2020-10-31 08:53 | PCM.PNPP ---
- General Info Date of Service: 10/31/20 Functional Status: Reports: Pain Controlled, Tolerating Diet, Ambulating, Urinating - Review of Systems General: Reports: No Symptoms HEENT: Reports: No Symptoms Pulmonary: Reports: No Symptoms Cardiovascular: Reports: No Symptoms Gastrointestinal: Reports: No Symptoms Genitourinary: Reports: No Symptoms Musculoskeletal: Reports: No Symptoms Skin: Reports: No Symptoms Neurological: Reports: No Symptoms Psychiatric: Reports: No Symptoms - Patient Data Vital Signs - Most Recent: Last Vital Signs Temp 36.6 C 10/31/20 08:12 Pulse 75 10/31/20 08:12 Resp 18 10/31/20 08:12 BP 117/58 L 10/31/20 08:12 Pulse Ox 98 10/31/20 08:12 Weight - Most Recent: 236 lb Lab Results - Last 24 Hours: Laboratory Results - last 24 hr 10/31/20 Range/Units 04:46 WBC 9.43 (4.0-11.0) K/uL RBC 3.46 L (4.30-5.90) M/uL Hgb 10.3 L (12.0-16.0) g/dL Hct 31.8 L (36.0-46.0) % MCV 91.9 (80.0-98.0) fL MCH 29.8 (27.0-32.0) pg MCHC 32.4 (31.0-37.0) g/dL RDW Std Deviation 46.3 (28.0-62.0) fl RDW Coeff of Brandi 14 (11.0-15.0) % Plt Count 152 (150-400) K/uL MPV 11.90 (7.40-12.00) fL Neut % (Auto) 74.1 (48.0-80.0) % Lymph % (Auto) 17.8 (16.0-40.0) % [place] % (Auto) 7.5 (0.0-15.0) % Eos % (Auto) 0.5 (0.0-7.0) % Baso % (Auto) 0.1 (0.0-1.5) % Neut # (Auto) 7.0 H (1.4-5.7) K/uL Lymph # (Auto) 1.7 (0.6-2.4) K/uL [place] # (Auto) 0.7 (0.0-0.8) K/uL Eos # (Auto) 0.1 (0.0-0.7) K/uL Baso # (Auto) 0.0 (0.0-0.1) K/uL Nucleated RBC % 0.0 /100WBC Nucleated RBCs # 0 K/uL Med Orders - Current: Current Medications Acetaminophen (Acetaminophen 500 Mg Tab) 500 mg PO Q4H PRN PRN Reason: Pain Acetaminophen (Acetaminophen 500 Mg Tab) 1,000 mg PO Q4H PRN PRN Reason: Pain Last Admin: 10/30/20 16:19 Dose: 1,000 mg Documented by: Benzocaine/Menthol (Benzocaine/Menthol 20%-0.5% [place] 78 Gm Cannister) 78 gm TOP ASDIRECTED PRN PRN Reason: Perineal Comfort Measure Bisacodyl (Bisacodyl 10 Mg Supp) 10 mg RECTAL ONETIME PRN PRN Reason: Constipation Butorphanol Tartrate (Butorphanol 1 Mg/Ml Sdv) 1 mg IVPUSH Q1H PRN PRN Reason: Pain Last Admin: 10/30/20 06:29 Dose: 1 mg Documented by: Carboprost Tromethamine (Carboprost Tromethamine 250 Mcg/1 Ml Amp) 250 mcg IM ASDIRECTED PRN PRN Reason: Post Hemorrhage Docusate Sodium (Docusate Sodium 100 Mg Cap) 100 mg PO BID PRN PRN Reason: Constipation Emollient Ointment (Lanolin 100% Cream 7 Gm Tube) 0 gm TOP ASDIRECTED PRN PRN Reason: Sore Nipples Oxytocin/Sodium Chloride (Oxytocin 30 Unit/500 Ml-Ns) 30 unit in 500 mls @ 2 mls/hr IV TITRATE DAYANA; Protocol Last Titration: 10/30/20 06:15 Dose: 0 munits/min, 0 mls/hr Documented by: Lactated Ringer's (Ringers, Lactated) 1,000 mls @ 150 mls/hr IV ASDIRECTED DAYANA Last Admin: 10/29/20 21:05 Dose: 150 mls/hr Documented by: Oxytocin/Sodium Chloride (Oxytocin 30 Unit/500 Ml-Ns) 30 unit in 500 mls @ 999 mls/hr IV TITRATE DAYANA Last Admin: 10/30/20 06:17 Dose: 500 mls/hr Documented by: Tranexamic Acid 1,000 mg/ (Sodium Chloride) 110 mls @ 660 mls/hr IV ONETIME PRN PRN Reason: Bleeding Ibuprofen (Ibuprofen 400 Mg Tab) 400 mg PO Q4H PRN PRN Reason: Pain Ibuprofen (Ibuprofen 800 Mg Tab) 800 mg PO Q6H PRN PRN Reason: Pain Lidocaine HCl (Lidocaine 1% 50 Ml Mdv) 50 ml INJECT ONETIME PRN PRN Reason: Laceration repair Methylergonovine Maleate (Methylergonovine 0.2 Mg/1 Ml Amp) 0.2 mg IM ASDIRECTED PRN PRN Reason: Post Hemorrhage Misoprostol (Misoprostol 200 Mcg Tab) 200 mcg PO ONETIME PRN PRN Reason: Post Hemorrhage Last Admin: 10/30/20 06:18 Dose: 800 mcg Documented by: Nalbuphine HCl (Nalbuphine 10 Mg/1 Ml Vial) 10 mg IVPUSH Q1H PRN PRN Reason: Pain (severe 7-10) Ondansetron HCl (Ondansetron 4 Mg/2 Ml Sdv) 4 mg IVPUSH Q6H PRN PRN Reason: Nausea/Vomiting Last Admin: 10/30/20 01:10 Dose: 4 mg Documented by: Oxycodone HCl (Oxycodone 5 Mg Tab) 5 mg PO Q2H PRN PRN Reason: Pain Last Admin: 10/31/20 08:42 Dose: 5 mg Documented by: Sterile Water (Water For Irrigation,Sterile 1,000 Ml Container) 1,000 ml IRR A SDIRECTED PRN PRN Reason: delivery Witch Mable (Witch Mable Medicated Pads 40/Jar) 1 pad TOP ASDIRECTED PRN PRN Reason: comfort care Discontinued Medications Butorphanol Tartrate (Butorphanol 1 Mg/Ml Sdv) Confirm Administered Dose 1 mg .ROUTE .STK-MED ONE Stop: 10/30/20 06:08 Cefazolin Sodium (Cefazolin 1 Gm Vial) Confirm Administered Dose 2 gm .ROUTE .STK-MED ONE Stop: 10/30/20 07:09 Fentanyl (Fentanyl 100 Mcg/2 Ml Sdv) Confirm Administered Dose 100 mcg .ROUTE .STK-MED ONE Stop: 10/29/20 20:39 Fentanyl (Fentanyl 250 Mcg/5 Ml Sdv) Confirm Administered Dose 0 mcg .ROUTE .ST-MED ONE Stop: 10/30/20 08:05 Fentanyl (Fentanyl 100 Mcg/2 Ml Sdv) Confirm Administered Dose 100 mcg .ROUTE .ST-MED ONE Stop: 10/30/20 04:41 Ropivacaine (Naropin 0.2%) Confirm Administered Dose 100 mls @ as directed .ROUTE .ST-MED ONE Stop: 10/29/20 20:40 Sodium Chloride (Normal Saline) Confirm Administered Dose 20 mls @ as directed .ROUTE .ST-MED ONE Stop: 10/30/20 07:09 Ropivacaine (Naropin 0.2%) Confirm Administered Dose 100 mls @ as directed .ROUTE .[facility] ONE Stop: 10/30/20 04:41 Oxytocin/Sodium Chloride (Oxytocin 30 Unit/500 Ml-Ns) Confirm Administered Dose 30 unit in 500 mls @ as directed .ROUTE .ST-MED ONE Stop: 10/30/20 06:13 Ketamine HCl (Ketamine 500 Mg/10 Ml Mdv) Confirm Administered Dose 500 mg .ROUTE .ST-MED ONE Stop: 10/30/20 07:46 Lidocaine/Epinephrine (Lidocaine 2% With Epinephrine 1:200,000 20 Ml Sdv) Confirm Administered Dose 20 ml .ROUTE .ST-MED ONE Stop: 10/30/20 04:41 Methylergonovine Maleate (Methylergonovine 0.2 Mg/1 Ml Amp) Confirm Administered Dose 0.2 mg .ROUTE .ST-MED ONE Stop: 10/30/20 08:14 Midazolam HCl (Midazolam 1 Mg/Ml 2 Ml Sdv) Confirm Administered Dose 2 mg .ROUTE .ST-MED ONE Stop: 10/30/20 07:14 Midazolam HCl (Midazolam 1 Mg/Ml 2 Ml Sdv) Confirm Administered Dose 2 mg .ROUTE .ST-MED ONE Stop: 10/30/20 07:15 Misoprostol (Misoprostol 200 Mcg Tab) Confirm Administered Dose 800 mcg .ROUTE .ST-MED ONE Stop: 10/30/20 06:13 Ondansetron HCl (Ondansetron 4 Mg/2 Ml Sdv) Confirm Administered Dose 4 mg .ROUTE .ST-MED ONE Stop: 10/30/20 00:55 Propofol (Propofol 200 Mg/20 Ml Sdv) Confirm Administered Dose 0 mg .ROUTE .ST- MED ONE Stop: 10/30/20 07:13 Propofol (Propofol 200 Mg/20 Ml Sdv) Confirm Administered Dose 200 mg .ROUTE .STK-MED ONE Stop: 10/30/20 08:07 Sodium Chloride (Sodium Chloride 0.9% 10 Ml Syringe) 10 ml FLUSH ASDIRECTED PRN PRN Reason: Keep Vein Open Sodium Chloride (Sodium Chloride 0.9% 2.5 Ml Syringe) 2.5 ml FLUSH ASDIRECTED PRN PRN Reason: Keep Vein Open Sodium Chloride (Sodium Chloride 0.9% 10 Ml Sdv) 10 ml IV ASDIRECTED PRN PRN Reason: IV Use Terbutaline Sulfate (Terbutaline 1 Mg/Ml Sdv) 0.25 mg SUBCUT ASDIRECTED PRN PRN Reason: Tacysystole - Infant Interaction Infant Disposition, : at Bedside Infant Interaction: Holding Infant Feeding: Bottle Fed Infant Support Person: Significant Other - Recovery Exam Fundal Tone: Firm Fundal Level: 1 Fingerbreadths Above Umbilicus Fundal Placement: Midline Lochia Amount: Scant Lochia Color: Rubra/Red Perineum Description: Intact, Minimal Bruising/Swelling Bladder Status: Voiding Urinary Elimination: Voided - Exam General: Alert, Oriented, Cooperative, No Acute Distress HEENT: Pupils Equal, Pupils Reactive, EOMI Neck: Supple, Trachea Midline, No JVD Lungs: Normal Respiratory Effort GI/Abdominal Exam: Soft, Non-Tender, No Distention Extremities: Normal Inspection, Normal Range of Motion, Non-Tender, No Pedal Edema Skin: Warm, Dry, Intact Neurological: No New Focal Deficit Psy/Mental Status: Alert, Normal Affect, Normal Mood - Problem List Review Problem List Initiated/Reviewed/Updated: Yes - My Orders Last 24 Hours: My Active Orders 10/31/20 08:46 Ready for Discharge [RC] PER UNIT ROUTINE - Assessment Assessment:: 35yo P1001 PPD1 s/p @ 37w3d, complicated by retained placenta requiring manual removal under anesthesia. IUGR , Active Hep C , Septate uterus. - Plan Plan:: - BP normotensive this AM, denies symptoms of preeclampsia, had normal labs - bleeding light, no signs of anemia, Hgb 10.3 - bottlefeeding - plan for discharge home today, reviewed care instructions
--- NOTE | 2020-10-31 11:52 | OR ---
SURGEON: JORDY MENG DATE OF PROCEDURE: 10/30/2020 PREOPERATIVE DIAGNOSES: A 35-year-old G1, P0 at 37 weeks 3 days admitted for prelabor rupture of membranes , growth restriction , hepatitis C positive, and septate uterus. POSTOPERATIVE DIAGNOSES: 1. A 35-year-old G1, P0 at 37 weeks 3 days admitted for prelabor rupture of membranes, growth restriction, hepatitis C positive, and septate uterus, and also retained placenta after delivery. 2. spontaneous vaginal delivery with retained placenta. PROCEDURES: 1. Spontaneous vaginal delivery. 2. Failed attempt at manual removal of placenta. 3. Ultrasound-guided removal of placenta with curettage. ESTIMATED BLOOD LOSS: 1. For vaginal delivery was 300. 2. For removal of placenta was about 500. Total is about 800 ANESTHESIA: Epidural for vaginal delivery MAC with epidural for removal of placenta. INTRAVENOUS FLUID: 1000. NOTES AND FINDINGS: A live female delivered at 5:40 a.m. scores 8 and 9, weight is 2470 g. USS showed retained placenta in the right fundus , after removal of placenta Ultrasound showed empty uterus BRIEF HISTORY ABOUT THE PATIENT: She is a 35-year-old G1, P0 at 37 weeks 3 days with a history of IUGR, hepatitis C, and septate uterus who came in complaining of leakage of fluid. She was confirmed ruptured. As a result of these, Pitocin was started. She received Pitocin and she had a normal curve, and she became fully dilated. With the patient being fully dilated, she pushed for about 1 hour PROCEDURE: With good pushing efffort , she delivered the head subsequently by the anterior and posterior shoulder. Body delivered , Delayed cord clamping was done.Cord blood gases to obtained. Attempt was made to remove placenta via controlled cord traction with no success. Then, after 30 minutes, . The patient was then given some Stadol. Attempt was made to remove the placenta by manual removal. This was not also successful. As a result, Anesthesia was called. The patient was given 2 g of Ancef and she was taken to the operating room. The patient in the operating room, she was prepared and draped in the dorsal lithotomy position, and she received MAC anesthesia. The cervix was then held with a ring forceps. The hitch technician was called who did the ultrasound as procedure was being performed. The Maryam curette was used to cleave the plane between the placenta and the uterus and the endometrium. When this was cleaved out, part of the placenta was then pulled down. The placenta was then grabbed with a sponge forceps and carefully removed from the uterus. After the placenta was removed, a gentle curette was done around the uterine cavity under ultrasound guidance. Ring forcep was removed.Hemostasis was noted . The patient tolerated the procedure well and was taken to Labor and Delivery room in stable condition. SURINDER GOMEZ /[id number] MTDD
== END 2020-10-31 14:30 | disposition home or self-care (01) | DRG 797 ==
LOC: MW.OBCHECK 15:00 → MW.OB 15:02 → MW.OBCHECK 17:44 → OBSVTOIN 10-30 11:54 → MW.OB 10-30 11:55
PROVIDERS: ADMIT Obstetrics & Gynecology; ATTEND Obstetrics & Gynecology
PROC: 10E0XZZ Delivery of Products of Conception, External Approach (ICD-10-PCS; principal; 2020-10-30)
PROC: 10D17ZZ Extraction of Products of Conception, Retained, Via Natural or Artificial Opening (ICD-10-PCS; 2020-10-30)
PROC: 3E0R3BZ Introduction of Anesthetic Agent into Spinal Canal, Percutaneous Approach (ICD-10-PCS; 2020-10-30)
PROC: 00HU33Z Insertion of Infusion Device into Spinal Canal, Percutaneous Approach (ICD-10-PCS; 2020-10-30)
PROC: 3E033VJ Introduction of Other Hormone into Peripheral Vein, Percutaneous Approach (ICD-10-PCS; 2020-10-30)
DX: O36.5930 Maternal care for other known or suspected poor fetal growth, third trimester, not applicable or unspecified (principal); O98.42 Viral hepatitis complicating childbirth; Z37.0 Single live birth; O42.02 Full-term premature rupture of membranes, onset of labor within 24 hours of rupture; B19.20 Unspecified viral hepatitis C without hepatic coma; O99.334 Smoking (tobacco) complicating childbirth; F17.200 Nicotine dependence, unspecified, uncomplicated; O73.0 Retained placenta without hemorrhage; Z20.822 Contact with and (suspected) exposure to COVID-19; O34.03 Maternal care for unspecified congenital malformation of uterus, third trimester; Q51.28 Other and unspecified doubling of uterus; Z3A.37 37 weeks gestation of pregnancy
CPT/HCPCS: 00940; 01967; 36415; 51702; 59025; 59409; 76857; 76857-26; 80053; 82570; 84112; 84156; 84550; 85025; 85027; 86592; 86850; 86900; 86901; 88305; 88307; A9270-GY; J0595; J0690; J2210; J2250; J2405; J2590; J2704; J2795; J3010; J7120; U0002